=== PATIENT | male | born 1980 | race Caucasian/White ===

== ENCOUNTER → 2021-12-22 | Outpatient (CLI) | payer OTHER ==
--- NOTE | 2021-12-22 18:29 | DIREP ---
PROCEDURE:XRAY SINUSES PARANASAL<3 VWS COMPARISON:None. INDICATIONS:Z00.00 HISTORY AND PHYSICAL EVALUATION TECHNIQUE: Three views of the sinuses were performed FINDINGS: MAXILLARY:Normal. No mucosal thickening or fluid level. ETHMOID:Normal. No mucosal thickening or fluid level. FRONTAL:Normal. No mucosal thickening or fluid level. SPHENOID:Normal. No mucosal thickening or fluid level. OTHER:Negative. CONCLUSION:The paranasal sinuses are clear. Dictated by: Coiln Pena M.D. on 12/22/2021 at 06:27 PM
== END | disposition home or self-care (01) ==
LOC: RAD 13:48
DX: Z00.00 Encounter for general adult medical examination without abnormal findings (principal)
CPT/HCPCS: 70220